=== PATIENT | female | born 2000 | race Caucasian/White ===

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

== ENCOUNTER 2019-02-01 11:17 | Emergency (ER) | payer BC ==
[2019-02-01] MEDS ORDERED: traMADol TAB* 50 MG PO ONE (12:09)
--- NOTE | 2019-02-01 12:18 | ED ---
Lower Extremity - HPI Summary HPI Summary: Pt is a 18 y/o F presenting to the ED with a chief complaint of R knee pain. She states she went to her physicians office last week where a knee XR showed a tumor, and her pain has since gotten worse. 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 She denies fever. The pt has an MRI scheduled for tomorrow which she did not know about. - History of Current Complaint Chief Complaint: EDExtremityLower Stated Complaint: MRI PER PT Time Seen by Provider: 02/01/19 12:00 Hx Obtained From: Patient Hx Last Menstrual Period: 09/30/17 Mechanism Of Injury: Unknown Onset of Pain: Hours Onset/Duration: Weeks Severity Initially: Moderate Severity Currently: Severe Pain Intensity: 9 Pain Scale Used: 0-10 Numeric Timing: Constant, Lasting Weeks Location: Is Discrete @ - R knee Associated Signs And Symptoms: Positive: Knee Pain. Negative: Fever Aggravating Factor(s): Weight Bearing Alleviating Factor(s): Nothing Able to Bear Weight: Yes - Allergies/Home Medications Allergies/Adverse Reactions: Allergies Allergy/AdvReac Type Severity Reaction Status Date / Time No Known Allergies Allergy Verified 02/01/19 11:24 Home Medications: Home Medications Norgestimate-Ethinyl Estradiol [Pjj-Kp-Dhdngftn Tablet] 1 tab PO DAILY 02/01/19 [History Confirmed 02/01/19] PMH/Surg Hx/FS Hx/Imm Hx Previously Healthy: Yes Endocrine/Hematology History: Denies: Hx Anticoagulant Therapy, Hx Diabetes, Hx Thyroid Disease Cardiovascular History: Denies: Hx Hypertension, Hx Pacemaker/ICD Respiratory History: Denies: Hx Asthma, Hx Chronic Obstructive Pulmonary Disease (COPD) GI History: Denies: Hx Ulcer History: Denies: Hx Renal Disease Neurological History: Denies: Hx Dementia, Hx Seizures Psychiatric History: Denies: Hx Substance Abuse - Surgical History Surgery Procedure, Year, and Place: 2000 [address] NECK DRAINED Infectious Disease History: No Infectious Disease History: Denies: Hx Hepatitis, Hx Human Immunodeficiency Virus (HIV), Traveled Outside the [place] in Last 30 Days - Family History Known Family History: Positive: Hypertension - Social History Alcohol Use: None Hx Substance Use: No Substance Use Type: Reports: None Hx Tobacco Use: No Smoking Status (MU): Never Smoked Tobacco Review of Systems Negative: Fever Positive: Arthralgia - R knee pain All Other Systems Reviewed And Are Negative: Yes Physical Exam - Summary Physical Exam Summary: Appearance: Well appearing, no pain distress Skin: warm, dry, reflects adequate perfusion Head/face: normal Eyes: EOMI, GEMIIN ENT: normal Neck: supple, non-tender Respiratory: CTA, breath sounds present Cardiovascular: RRR, pulses symmetrical Abdomen: non-tender, soft Musculoskeletal: mild tenderness over R knee, strength/ROM intact Neuro: normal, sensory motor intact, A&Ox3 Triage Information Reviewed: Yes Vital Signs On Initial Exam: Initial Vitals Temp Pulse Resp BP Pulse Ox 99 F 73 16 130/85 97 02/01/19 11:21 02/01/19 11:21 02/01/19 11:21 02/01/19 11:21 02/01/19 11:21 Vital Signs Reviewed: Yes Diagnostics - Vital Signs Vital Signs Temp Pulse Resp BP Pulse Ox 02/01/19 11:21 99 F 73 16 130/85 97 - Laboratory Lab Statement: Any lab studies that have been ordered have been reviewed, and results considered in the medical decision making process. Lower Extremity Course/Dx - Course Course Of Treatment: Pt is a 18 y/o F presenting to the ED with a chief complaint of knee pain onset multiple weeks ago. She had an XR last week that showed a tumor which her physician scheduled an MRI for. The pt did not know her MRI was scheduled for tomorrow, so she came today to get one done because her pain is unbearable. She denies fever. On physical exam, there is mild tenderness to the R knee. After confirming the pt's clearance and appointment for her MRI, she will be d/c'ed with a dx of knee pain. She is stable and agreeable with this plan. - Diagnoses Differential Diagnosis/HQI/PQRI: Positive: Sprain Provider Diagnoses: Right knee pain Discharge - Sign-Out/Discharge Documenting (check all that apply): Patient Departure Patient Received Moderate/Deep Sedation with Procedure: No - Discharge Plan Condition: Stable Disposition: HOME Prescriptions: Ibuprofen TAB* [Motrin TAB* 600 MG] 600 mg PO Q8H PRN #15 tab MDD 3 PRN Reason: Pain Tramadol HCl [Ultram] 50 mg PO BID #10 tablet MDD 2 Referrals: Damon CAMERON Lory ANGEL [Primary Care Provider] - Additional Instructions: Please call scheduling tomorrow morning to confirm the time of your MRI tomorrow. Return to the ED with any new or worsening symptoms. - Billing Disposition and Condition Condition: STABLE Disposition: Home - Attestation Statements Document Initiated by Perla: Yes Documenting Scribe: Melany Phillips Provider For Whom Perla is Documenting (Include Credential): Ricky Luz MD. Scribe Attestation: Melany Bates, kristaned for Ricky Luz MD. on 02/01/19 at 1253. Scribe Documentation Reviewed: Yes Provider Attestation: The documentation as recorded by the Melany dai accurately reflects the service I personally performed and the decisions made by Ricky duong MD. Status of Scribe Document: Viewed
[2019-02-01 13:34] VITALS: BP 118/59
== END 2019-02-01 13:00 | disposition home or self-care (01) ==
LOC: ED 11:17
DX: M25.561 Pain in right knee (principal)
CPT/HCPCS: 99282; A9270-GY

== ENCOUNTER 2019-03-12 17:18 | Emergency (ER) | payer BC ==
[2019-03-12 17:28] VITALS: BP 101/63
--- NOTE | 2019-03-12 17:51 | UC ---
Abdominal Pain Female HPI - HPI Summary HPI Summary: has been constipated for 6 days ---is on pain medication due to right leg surgery has been taking Colace daily and ducolax times 2 today - History of Current Complaint Chief Complaint: UCGI Stated Complaint: CONSTIPATION Time Seen by Provider: 03/12/19 17:34 Hx Obtained From: Family/Cork Tipper Hx Last Menstrual Period: 03/01/19 ?: No Onset/Duration: Sudden Onset, Lasting Days - 6, Still Present Timing: Constant Pain Intensity: 7 Pain Scale Used: 0-10 Numeric Location: Diffuse Radiates: No Character: Cramping Aggravating Factor(s): Food Alleviating Factor(s): Nothing Associated Signs and Symptoms: Positive: Constipation, Decreased Appetite, Nausea Allergies/Adverse Reactions: Allergies Allergy/AdvReac Type Severity Reaction Status Date / Time No Known Allergies Allergy Verified 03/12/19 17:28 Home Medications: Home Medications Hydrocodone/Acetaminophen [Hydrocodone/Acetaminophen 5-325 mg] 1 tab PO Q6HR 03/24 [History Confirmed 03/12/19] PMH/Surg Hx/FS Hx/Imm Hx Previously Healthy: Yes Other History Of: Negative For: Anticoagulant Therapy - Surgical History Surgical History: Yes Surgery Procedure, Year, and Place: 2000 [address]ECK DRAINED - Family History Known Family History: Positive: Hypertension - Social History Occupation: Unemployed Lives: With Family Alcohol Use: None Substance Use Type: None Smoking Status (MU): Never Smoked Tobacco - Immunization History Most Recent Influenza Vaccination: none Vaccination Up to Date: Yes Review of Systems All Other Systems Reviewed And Are Negative: Yes Constitutional: Positive: Negative Skin: Positive: Negative Eyes: Positive: Negative ENT: Positive: Negative Respiratory: Positive: Negative Cardiovascular: Positive: Negative Gastrointestinal: Positive: Abdominal Pain, Nausea - constipation Genitourinary: Positive: Negative Motor: Positive: Negative Neurovascular: Positive: Negative Musculoskeletal: Positive: Negative Neurological: Positive: Negative Psychological: Positive: Negative Is Patient Immunocompromised?: No Physical Exam Triage Information Reviewed: Yes Appearance: Well-Appearing, No Pain Distress, Well-Nourished Vital Signs: Initial Vital Signs Temp 99.2 F 03/12/19 17:23 Pulse 81 03/12/19 17:23 Resp 18 03/12/19 17:23 BP 101/63 03/12/19 17:23 Pulse Ox 100 03/12/19 17:23 Vital Signs Reviewed: Yes Eye Exam: Normal Eyes: Positive: Conjunctiva Clear ENT Exam: Normal ENT: Positive: Normal ENT inspection, Hearing grossly normal. Negative: Trismus , Muffled voice, Hoarse voice Neck exam: Normal Neck: Positive: Supple, Nontender, No Lymphadenopathy Respiratory Exam: Normal Respiratory: Positive: Chest non-tender, No respiratory distress, No accessory muscle use Cardiovascular Exam: Normal Cardiovascular: Positive: RRR, Pulses Normal, Brisk Capillary Refill Abdominal Exam: Other Abdomen Description: Positive: No Organomegaly, Soft, Distended, Other: - diffusly tender. Negative: CVA Tenderness (R), CVA Tenderness (L), Guarding Bowel Sounds: Positive: Present Musculoskeletal Exam: Normal Musculoskeletal: Positive: Strength Intact, ROM Intact, No Edema Neurological Exam: Normal Neurological: Positive: Alert, Muscle Tone Normal Psychological Exam: Normal Skin Exam: Normal Abd Pain Female Course/Dx - Course Course Of Treatment: large stool after fleets enema, feeling much better discharge to home---may add fiber,and, miralax to rx - Differential Dx/Diagnosis Provider Diagnosis: Constipation due to pain medication therapy Discharge - Sign-Out/Discharge Documenting (check all that apply): Patient Departure All imaging exams completed and their final reports reviewed: Yes - Discharge Plan Condition: Stable Disposition: HOME Patient Education Materials: Polyethylene Glycol 3350 (By mouth), Constipation (ED), High Fiber Diet (ED) Referrals: Lory Plunkett RN [Primary Care Provider] - If Needed - Billing Disposition and Condition Condition: STABLE Disposition: Home
[2019-03-12] MEDS ORDERED: Sodium Phosphate ADULT ENEMA* 118 ml bottle PR ONE (18:28)
== END 2019-03-12 19:12 | disposition home or self-care (01) ==
LOC: UCEAST 17:18
DX: K59.03 Drug induced constipation (principal); T40.2X5A Adverse effect of other opioids, initial encounter; Y92.9 Unspecified place or not applicable
CPT/HCPCS: 74019; 99213; A9270-GY; G0463